=== PATIENT | female | born 1990 | race Caucasian/White ===

== ENCOUNTER 2025-03-30 21:51 | Emergency (ER) | payer OTHER, SELFPAY ==
[2025-03-30 21:54] VITALS: BP 131/87
--- NOTE | 2025-03-31 00:25 | ED.GENMED ---
History of Present Illness
General
Chief Complaint: Musculo-Skeletal Complaint
Source: patient
Exam Limitations: none
Time Seen by Provider: 03/31/25 00:17
Nursing documentation reviewed up to this point in time: agreed with
History of Present Illness
History of Present Illness:
34-year-old female presenting to the emergency department today with concerns of left-sided lateral rib discomfort after colliding into somebody while playing soccer earlier today. Ongoing discomfort to the left lower ribs. Denies any chest pain
shortness of breath nausea vomiting no abdominal pain.
Review of Systems
Review of Systems
Allergies reviewed?: Yes
All Other Systems: ROS reviewed and negative except as documented in HPI and ROS
Phy Exam
Physical Exam
Physical Exam:
GENERAL: Alert , in no apparent distress
EYE: pupils equal and reactive
NECK: Supple, no significant adenopathy.
ENT: o/p clr, mmm.
CARDIAC: Discomfort about the left lateral lower ribs no pain to the abdomen. Normal heart and lung exam regular rate and rhythm .
LUNGS: Clear breath sounds bilaterally, no acute respiratory distress, no wheezes/rales/rhonchi
ABDOMEN: Soft, without focal tenderness, no r/g, no cvat
NEUROLOGICAL: Alert and oriented, no focal neuro deficits
SKIN: Warm and dry, skin intact.
MUSCULOSKELETAL: No edema, well perfused.
PSYCH: Normal and appropriate interaction.
Course
Orders/Labs/Results
Orders:
Orders
03/30/25 21:58
Ribs, Left 3 View W/PA Chest CR [CR Ribs-left 3 Vw W/pa Chest] Urgent
Comment:
Reason For Exam: left rib pain after injury
03/31/25 00:34
Ketorolac [Toradol] 30 mg IM NOW STA
Incentive Spirometry [Rx Incentive Spirometry] [RESP] Urgent
Frequency: q1h while awake
Vital Signs
Initial and Last Documented VS:
Initial Vital Signs
Temp Pulse Resp BP Pulse Ox
98 F 110 18 131/87 99
03/30/25 21:54 03/30/25 21:54 03/30/25 21:54 03/30/25 21:54 03/30/25 21:54
Last Documented Vital Signs
Temp Pulse Resp BP Pulse Ox
98 F 93 20 126/85 98
03/30/25 21:54 03/31/25 00:28 03/31/25 00:28 03/31/25 00:28 03/31/25 00:28
MDM/Problems Addressed
MDM/Problems Addressed:
34-year-old female presenting with concerns of left lateral rib discomfort after an injury playing soccer. X-ray without evidence of fracture. Normal lung escobedo. No pain to the abdomen no evidence of intra-abdominal injury. X-ray without acute
abnormalities. Plan for symptomatic treatment otherwise stable for discharge. Return precautions given.
*Pulse Oximetry
SaO2: 99
Oxygen Mode of Delivery: Room air
Patient hypoxic: no (98)
*Critical Care Note
Total Time (30-74mins, 75-104mins- exclusive of procedures): Not Applicable
ED Attending Note
-
Portions of this chart may have been created with voice recognition software.� Occasional wrong word or��sound alike� substitutions may have occurred due to the inherent limitations of voice recognition software.
Discharge Plan
Departure
Patient Disposition: Home (Routine Discharge)
Date of Disposition: 03/31/25
Time of Disposition: 00:59
Patient with high blood pressure during this ER visit?: No
Condition: Good
Covid-19: Not Applicable
Discharge Problem:
Contusion of rib
Instructions: Rib injury in adults
Stand Alone Forms: Return to Work
Activity Restrictions/Additional Instructions:
You came to the emergency department today with concerns of a rib please rest ice and use pain medication to help with symptoms. Return for any worsening, new or concerning symptoms. Otherwise please follow-up closely with your primary care doctor
within 1 week or so.
Interventions
Interventions:
*Risk Screen - Suicide Last Done: 03/30/25 21:54
*General Assessment Last Done: 03/30/25 21:54
*Neglect/Abuse Screening Last Done: 03/30/25 21:54
ED-Musculoskeletal Assessment Last Done: 03/31/25 00:28
Discharge Date and Time
Print Language: HUNGARIAN
[2025-03-31 00:28] VITALS: BP 126/85
[2025-03-31] MEDS: TORADOL 30 MG IM (00:39)
== END 2025-03-31 01:24 | disposition home or self-care (01) ==
LOC: EMR 21:51
PROVIDERS: EMERGENCY PHYSICIAN Emergency Medicine; FAMILY PHYSICIAN Family Medicine
DX: S20.219A Contusion of unspecified front wall of thorax, initial encounter (principal); X58.XXXA Exposure to other specified factors, initial encounter
CPT/HCPCS: 71101; 96372; 99283